=== PATIENT | male | born 1950 | race Caucasian/White ===

== ENCOUNTER → 2016-03-31 | Outpatient (CLI) | payer MEDICARE, OTHER ==
[~2016-03-31] MED LIST: HYDR-3133 PO; OMEP40CA2 PO; PENT500C2 PO; PROP10TA6 PO; RIFA550 PO; TAMS0.4C67 PO; TAMS5CAP PO; XIFA550T4 PO
== END ==
LOC: CLAB 10:07
PROVIDERS: ATTEND Specialist
DX: B18.2 Chronic viral hepatitis C (principal)
CPT/HCPCS: 36415; 82140

== ENCOUNTER 2016-05-13 13:30 | Inpatient (IN) | payer MEDICARE ==
[~2016-05-13] VITALS: Ht 185.4 cm; Wt 91.7 kg
[~2016-05-13 13:30] MED LIST changes: -OMEP40CA2 PO; -TAMS5CAP PO; -XIFA550T4 PO
[2016-05-13 13:34] VITALS: BP 130/95; PULSE 81; RESP 16; TEMP 97.6; O2SAT 99
[2016-05-13] MEDS ORDERED: SODIUM CHLOR 0.9% 1000 ML INJ 1,000 ML IV SCH (13:44)
[2016-05-13] MEDS ORDERED: SODIUM CHLORIDE 0.9% FLUSH 10 ML FLUSH IV FLUSH PRN ×2 (13:45→16:15)
[2016-05-13] MEDS ORDERED: HYDROmorphone HCL PF 1 MG/ML VIAL IVS ONE (13:45)
[2016-05-13] MEDS ORDERED: ONDANSETRON HCL 4 MG/2 ML VIAL IVP ONE (13:45)
--- NOTE | 2016-05-13 13:47 | PD ---
HPI Chief Complaint: GI Complaint Time Seen by Provider: 13:44 Travel History International Travel<30 days: No Contact w/Intl Traveler<30days: No Traveled to known affect area: No History of Present Illness HPI This is a 65-year-old male who has a history Crohn's disease and liver cancer with an ileostomy who presents to the emergency department with 4 days of copious watery diarrhea, having loose stools every 20 minutes, severe, constant , associated with generalized weakness and diffuse body cramps. He also reports abdominal cramping around his umbilicus. He thinks he may gotten food poisoning from [place] food that he ate late Thursday evening. Patient denies any fevers or chills. He feels nauseous but hasn't vomited. He denies any recent antibiotic use. PFSH Past Medical History Hx Anticoagulant Therapy: No Autoimmune Disease: No Blood Disorders: Yes (anemia) Anxiety: No Depression: Yes Cancer: Yes (Liver) Cardiovascular Problems: No Cirrhosis: Yes (ESLD) Diabetes: No Diminished Hearing: No Diverticulitis: Yes (1.5FT REMOVED , BOWEL RESECTION) Endocrine: No Gastrointestinal Disorders: Yes (CROHNS) GERD: Yes Genitourinary: Yes (overactive bladder.) Headaches: Yes Hepatitis: Yes (HEPATITIS C-STAGE IV LIVER DISEASE) Hiatal Hernia: No Hypertension: No Immune Disorder: No Implanted Vascular Access Dvce: Yes Kidney Stones: No Musculoskeletal: No Neurologic: Yes (neurapathy ) Psychiatric: No Reproductive: No Respiratory: No Immunizations Current: Yes Renal Failure: No Thyroid Disease: No Ulcer: Yes PNEUMOCCOCAL Vaccine (Year): 2 Past Surgical History Abdominal Surgery: Yes (COLON RESECTION, HERNIA, ILEOSTOMY) AICD: No Cardiac Surgery: No Ear Surgery: No Endocrine Surgery: No Eye Surgery: No Genitourinary Surgery: No Gynecologic Surgery: No Joint Replacement: No Neurologic Surgery: No Oral Surgery: No Thoracic Surgery: No Other Surgery: Yes (JOSÉ LUIS HERNIA REPAIR, liver embolization ) Social History Alcohol Use: No Tobacco Use: No Substance Use: No Allergies-Medications (Allergen,Severity, Reaction): Coded Allergies: Prednisone (Verified Adverse Reaction, Intermediate, "PARANOID", 05/13/16) per patient denies allergy *MDRO Multi-Drug Resistant Organism (Verified Adverse Reaction, Unknown, ) VRE (epigastric fluid) - 10/2007 VRE (blood) - 08/2007 Reported Meds & Prescriptions Reported Meds & Active Scripts Active Reported Omeprazole 40 Mg Cap 40 Mg PO DAILY Flomax (Tamsulosin HCl) 0.4 Mg Cap 0.4 Mg PO BID Xifaxan (Rifaximin) 550 Mg Tab 550 Mg PO Q12HR Propranolol (Propranolol HCl) 10 Mg Tab 10 Mg PO Q12HR Pentasa (Mesalamine) 500 Mg Caper 1,000 Mg PO QID Hydroxyzine HCl 25 Mg Tab 25 Mg PO HS Review of Systems Except as stated in HPI: all other systems reviewed are Neg Physical Exam Narrative GENERAL:Well appearing, no acute distress SKIN: Dry with skin tenting HEAD: Atraumatic. Normocephalic. EYES: Pupils equal and round. No injection or drainage. ENT: Dry mucous membranes NECK: Trachea midline. CARDIOVASCULAR: Regular rate and rhythm. No murmur appreciated. RESPIRATORY: Clear to auscultation. Breath sounds equal bilaterally. GASTROINTESTINAL: Abdomen soft, diffusely mildly tender with no rebound or guarding. Ileostomy is patent and productive. Diffuse abdominal surgical scars. MUSCULOSKELETAL: No obvious deformities. NEUROLOGICAL: Awake and alert. No obvious cranial nerve deficits. Moving all extremities.. PSYCHIATRIC: Appropriate mood and affect; insight and judgment normal. Data Data Last Documented VS Vital Signs Date Time Temp Pulse Resp B/P Pulse Ox O2 Delivery O2 Flow Rate FiO2 05/13/16 14:33 97 05/13/16 13:50 16 05/13/16 13:34 97.6 81 130/95 Orders Complete Blood Count With Diff (05/13/16 13:44) Comprehensive Metabolic Panel (05/13/16 13:44) Urinalysis - C+S If Indicated (05/13/16 13:44) Iv Access Insert/Monitor (05/13/16 13:44) Ecg Monitoring (05/13/16 13:44) Oximetry (05/13/16 13:44) Ondansetron Inj (Zofran Inj) (05/13/16 13:45) Sodium Chlor 0.9% 1000 Ml Inj (Ns 1000 M (05/13/16 13:44) Sodium Chloride 0.9% Flush (Ns Flush) (05/13/16 13:45) Hydromorphone Pf Inj (Dilaudid Pf Inj) (05/13/16 13:45) Diatrizoate Liq ( Gastroulysses Liq) (05/13/16 14:17) Sodium Chlor 0.9% 1000 Ml Inj (Ns 1000 M (05/13/16 14:30) Ct Abd/Pel W/O Iv Contrast (05/13/16 ) C Diff Toxin Pcr (05/13/16 14:39) Admit Order (Ed Use Only) (05/13/16 14:48) Labs Laboratory Tests Test 05/13/16 13:50 White Blood Count 5.7 TH/MM3 Red Blood Count 5.46 MIL/MM3 Hemoglobin 17.1 GM/DL Hematocrit 49.8 % Mean Corpuscular Volume 91.2 FL Mean Corpuscular Hemoglobin 31.4 PG Mean Corpuscular Hemoglobin 34.4 % Concent Red Cell Distribution Width 13.6 % Platelet Count 102 TH/MM3 Mean Platelet Volume 7.7 FL Neutrophils (%) (Auto) 71.8 % Lymphocytes (%) (Auto) 8.5 % Monocytes (%) (Auto) 16.4 % Eosinophils (%) (Auto) 2.6 % Basophils (%) (Auto) 0.7 % Neutrophils # (Auto) 4.2 TH/MM3 Lymphocytes # (Auto) 0.5 TH/MM3 Monocytes # (Auto) 0.9 TH/MM3 Eosinophils # (Auto) 0.1 TH/MM3 Basophils # (Auto) 0.0 TH/MM3 CBC Comment AUTO DIFF Differential Comment AUTO DIFF CONFIRMED Sodium Level 128 MEQ/L Potassium Level 3.9 MEQ/L Chloride Level 95 MEQ/L Carbon Dioxide Level 23.5 MEQ/L Anion Gap 10 MEQ/L Blood Urea Nitrogen 32 MG/DL Creatinine 2.20 MG/DL Estimat Glomerular Filtration 30 ML/MIN Rate Random Glucose 126 MG/DL Calcium Level 8.9 MG/DL Total Bilirubin 1.5 MG/DL Aspartate Amino Transf 37 U/L (AST/SGOT) Alanine Aminotransferase 32 U/L (ALT/SGPT) Alkaline Phosphatase 119 U/L Total Protein 9.6 GM/DL Albumin 4.0 GM/DL MDM Medical Decision Making Medical Screen Exam Complete: Yes Emergency Medical Condition: Yes Interpretation(s) Afebrile, no tachycardia, mild hypertension No leukocytosis Hemoconcentration Hyponatremia Creatinine is 2.2 which is newly elevated from prior labs Total bilirubin is 1.5 and alkaline phosphatase is elevated Gamma gap is present Differential Diagnosis Viral gastroenteritis, infectious diarrhea, C. difficile, bowel obstruction, dehydration, electrolyte abnormality Narrative Course This is a 65-year-old patient who has a history of Crohn's disease with an ileostomy who presents to the emergency department with copious diarrhea that started 4 days ago. He was placed on a monitor and an IV was established. Labs were obtained which demonstrate hyponatremia and acute kidney injury consistent with dehydration. He was given 2 L of IV hydration. Stool studies were obtained. CT abdomen and pelvis was unrevealing. Patient will be admitted for further hydration. Physician Communication Physician Communication Discussed with Dr. King Diagnosis Primary Impression: Acute kidney injury Admitting Information Admitting Physician Requests: Admit Martha Tracy MD May 13, 2016 13:47
[2016-05-13 14:01] LABS: AUTOMATED NEUTROPHIL # 4.2 TH/MM3 (1.8-7.7); BASOPHIL % 0.7 % (0.0-2.0); EOSINOPHIL # 0.1 TH/MM3 (0-0.4); EOSINOPHIL % 2.6 % (0.0-4.0); HEMATOCRIT 49.8 % (39.0-51.0); LYMPH % 8.5 % (9.0-44.0); LYMPHOCYTE # 0.5 TH/MM3 (1.0-4.8); MEAN CELL VOLUME 91.2 FL (80.0-100.0); MEAN CORPUSCULAR HEMOGLOBIN 31.4 PG (27.0-34.0); MEAN CORPUSCULAR HGB CONC 34.4 % (32.0-36.0); MONO % 16.4 % (0.0-8.0); NEUT % 71.8 % (16.0-70.0); PLATELET COUNT 102 TH/MM3 (150-450); RED BLOOD COUNT 5.46 MIL/MM3 (4.50-5.90); RED CELL DISTRIBUTION WIDTH 13.6 % (11.6-17.2); WHITE BLOOD COUNT 5.7 TH/MM3 (4.0-11.0)
[2016-05-13] MEDS ORDERED: XIFA550T4 PO (14:02)
[2016-05-13] MEDS ORDERED: TAMS5CAP PO (14:02)
[2016-05-13] MEDS ORDERED: HYDR-3133 PO (14:02)
[2016-05-13] MEDS ORDERED: OMEP40CA2 PO (14:02)
[2016-05-13] MEDS ORDERED: PENT500C2 PO (14:02)
[2016-05-13] MEDS ORDERED: PROP10TA6 PO (14:02)
[2016-05-13 14:09] LABS: CHLORIDE 95 MEQ/L (98-107); POTASSIUM 3.9 MEQ/L (3.5-5.1); SODIUM (NA) 128 MEQ/L (136-145)
[2016-05-13 14:10] LABS: HEMO FLAGS AUTO DIFF
[2016-05-13 14:13] LABS: ANION GAP 10 MEQ/L (5-15); BICARBONATE 23.5 MEQ/L (21.0-32.0); BLOOD UREA NITROGEN 32 MG/DL (7-18)
[2016-05-13 14:16] LABS: ALT (GPT) 32 U/L (12-78); AST (GOT) 37 U/L (15-37); GLOMERULAR FILTRATION RATE 30 ML/MIN (>89)
[2016-05-13 14:17] LABS: TOTAL BILIRUBIN ADULT 1.5 MG/DL (0.2-1.0)
[2016-05-13] MEDS ORDERED: DIATRIZOATE MEGLUM/DIATRIZOATE SOD 9 ML CUP ONE (14:17)
[2016-05-13 14:19] LABS: ALKALINE PHOSPHATASE 119 U/L (45-117)
[2016-05-13 14:27] LABS: SCAN/DIFF AUTO DIFF CONFIRMED
[2016-05-13] MEDS ORDERED: SODIUM CHLOR 0.9% 1000 ML INJ 1,000 ML IV ONE (14:30)
[2016-05-13 14:33] VITALS: O2SAT 97
[2016-05-13 15:21] VITALS: BP 123/76; PULSE 63; RESP 16; O2SAT 98
--- NOTE | 2016-05-13 15:39 | RADHPO ---
EXAM DATE/TIME: 05/13/2016 14:41 [facility] COMPARISON: CT ABDOMEN & PELVIS W CONTRAST, April 18, 2015, 10:56. INDICATIONS : Abdominal cramping and diarrhea for three days. ORAL CONTRAST: No oral contrast ingested. RADIATION DOSE: 22.14 CTDIvol (mGy) MEDICAL HISTORY : Diverticulitis. Gastroesophageal reflux disease. Cirrhosis. SURGICAL HISTORY : Bowel resection. Ileostomy. Bilateral hernia repair. ENCOUNTER: Initial ACUITY: 3 days PAIN SCALE: 4/10 LOCATION: abdomen/pelvis TECHNIQUE: Volumetric scanning of the abdomen and pelvis was performed. Using automated exposure control and ad justment of the mA and/or kV according to patient size, radiation dose was kept as low as reasonably achievable to obtain optimal diagnostic quality images. FINDINGS: LOWER LUNGS: The visualized lower lungs are clear. LIVER: Oval 1.4 cm hypodensity in the left lobe of the liver is taller than on the comparison study of 2015 (2.6 cm). Metallic clips or coils in the right lobe of the liver. Distended gallbladder with multiple gallstones. Mild stranding opacity in the right upper quadrant inferior to the gallbladder is uncha nged. SPLEEN: Enlarged and unchanged. PANCREAS: Within normal limits. KIDNEYS: No change. No hydronephrosis. ADRENAL GLANDS: Within normal limits. VASCULAR: There is no aortic aneurysm. BOWEL/MESENTERY: Left lower quadrant spigelian anterior abdominal wall hernia containing bowel unchanged. Right sided stoma with parastomal hernia containing small bowel unchanged. No evidence of bowel dilatation. No fr ee air or free fluid. RETROPERITONEUM: There is no lymphadenopathy. BLADDER: No wall thickening or mass. REPRODUCTIVE: Enlarged prostate with calcifications unchanged. INGUINAL: There is no lymphadenopathy or hernia. MUSCULOSKELETAL: Within normal limits for patient age. CONCLUSION: 1. Cholelithiasis. Questionable mild inflammatory changes adjacent to distended gallbladder. The find ings are very similar to those of April 2015. 2. Splenomegaly unchanged. 3. Surgical clips or coils in the right lobe of the liver. This finding is new compared to prior stud y. 4. Parastomal hernia again seen on the right containing loops of small bowel. 5. 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 Ortega Bueno MD on May 13, 2016 at 15:24 Board Certified Radiologist. This report was verified electronically.
[2016-05-13 16:00] VITALS: BP 120/73; PULSE 65; RESP 18; TEMP 97.6; O2SAT 97
[2016-05-13] MEDS ORDERED: NALOXONE HCL 0.4 MG/ML AMP IV PRN (16:15)
[2016-05-13] MEDS ORDERED: HYDROmorphone HCL PF 1 MG/ML VIAL IV PRN (16:15)
[2016-05-13] MEDS ORDERED: ONDANSETRON HCL 4 MG/2 ML VIAL IVP PRN (16:15)
--- NOTE | 2016-05-13 16:17 | HHI.HP ---
HPI Service [facility] Hospitalists Primary Care Physician Inocente Ferguson MD Admission Diagnosis acute kidney injury, diarrhea Chief Complaint: several days nausea diarrhea Travel History International Travel<30 Days: No Contact w/Intl Traveler <30 Da: No Traveled to Known Affected Are: No History of Present Illness This is a 65-year-old male who has a history Crohn's disease and liver cancer with an ileostomy who presents to the emergency department with 4 days of copious watery diarrhea, having loose stools every 20 minutes, severe, constant , associated with generalized weakness and diffuse body cramps. He also reports abdominal cramping around his umbilicus. He thinks he may gotten food poisoning from [place] food that he ate late Thursday evening. Patient denies any fevers or chills. He feels nauseous but hasn't vomited. He denies any recent antibiotic use. In er had lab work showed increase in cr 2 range from old levels also CT showed inflammation near gallbladder and have sent stool studies. Review of Systems Gastrointestinal: COMPLAINS OF: Abdominal pain, Diarrhea, Nausea Past Family Social History Past Medical History anemia,depression,hep c stage 4 liver on transplant list neuropathy Past Surgical History 1.5 ft bowel resection 2005,2006 ileostomy hernia repair Reported Medications xifaxan 550 bid,pentasa 500 qid,flonex .4 bid,atarax 25 hs,proprolol 10 q 12 prilosec 20 Allergies: Coded Allergies: Prednisone (Verified Adverse Reaction, Intermediate, "PARANOID", 05/13/16) per patient denies allergy *MDRO Multi-Drug Resistant Organism (Verified Adverse Reaction, Unknown, ) VRE (epigastric fluid) - 10/2007 VRE (blood) - 08/2007 Social History NS,ND Physical Exam Vital Signs Vital Signs Date Time Temp Pulse Resp B/P Pulse Ox O2 Delivery O2 Flow Rate FiO2 05/13/16 15:21 63 16 123/76 98 Room Air 05/13/16 14:33 97 05/13/16 13:50 16 05/13/16 13:34 97.6 81 16 130/95 99 Physical Exam GENERAL: This is a well-nourished, well-developed patient, in no apparent distress. SKIN: No rashes, ecchymoses or lesions. Cool and dry. HEAD: Atraumatic. Normocephalic. No temporal or scalp tenderness. EYES: Pupils equal round and reactive. Extraocular motions intact. No scleral icterus. No injection or drainage. ENT: Nose without bleeding, purulent drainage or septal hematoma. Throat without erythema, tonsillar hypertrophy or exudate. Uvula midline. Airway patent. NECK: Trachea midline. No JVD or lymphadenopathy. Supple, nontender, no meningeal signs. CARDIOVASCULAR: Regular rate and rhythm without murmurs, gallops, or rubs. RESPIRATORY: Clear to auscultation. Breath sounds equal bilaterally. No wheezes , rales, or rhonchi. GASTROINTESTINAL: Abdomen soft, mild-tender, nondistended. No hepato- splenomegaly, or palpable masses. No guarding.ileostomy bag MUSCULOSKELETAL: Extremities without clubbing, cyanosis, or edema. No joint tenderness, effusion, or edema noted. No calf tenderness. Negative Homans sign bilaterally. NEUROLOGICAL: Awake and alert. Cranial nerves II through XII intact. Motor and sensory grossly within normal limits. Five out of 5 muscle strength in all muscle groups. Normal speech. Laboratory Laboratory Tests Test 05/13/16 13:50 White Blood Count 5.7 Red Blood Count 5.46 Hemoglobin 17.1 Hematocrit 49.8 Mean Corpuscular Volume 91.2 Mean Corpuscular Hemoglobin 31.4 Mean Corpuscular Hemoglobin 34.4 Concent Red Cell Distribution Width 13.6 Platelet Count 102 Mean Platelet Volume 7.7 Neutrophils (%) (Auto) 71.8 Lymphocytes (%) (Auto) 8.5 Monocytes (%) (Auto) 16.4 Eosinophils (%) (Auto) 2.6 Basophils (%) (Auto) 0.7 Neutrophils # (Auto) 4.2 Lymphocytes # (Auto) 0.5 Monocytes # (Auto) 0.9 Eosinophils # (Auto) 0.1 Basophils # (Auto) 0.0 CBC Comment AUTO DIFF Differential Comment AUTO DIFF CONFIRMED Sodium Level 128 Potassium Level 3.9 Chloride Level 95 Carbon Dioxide Level 23.5 Anion Gap 10 Blood Urea Nitrogen 32 Creatinine 2.20 Estimat Glomerular Filtration 30 Rate Random Glucose 126 Calcium Level 8.9 Total Bilirubin 1.5 Aspartate Amino Transf 37 (AST/SGOT) Alanine Aminotransferase 32 (ALT/SGPT) Alkaline Phosphatase 119 Total Protein 9.6 Albumin 4.0 Result Diagram: 05/13/16 1350 05/13/16 1350 Imaging Last 24 hours Impressions Abdomen/Pelvis CT 05/13/16 0000 Signed Impressions: Service Date/Time: Friday, May 13, 2016 14:41 - CONCLUSION: 1. Cholelithiasis. Questionable mild inflammatory changes adjacent to distended gallbladder. The findings are very similar to those of April 2015. 2. Splenomegaly unchanged. 3. Surgical clips or coils in the right lobe of the liver. This finding is new compared to prior study. 4. Parastomal hernia again seen on the right containing loops of small bowel. 5. 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 Ortega Bueno MD Assessment and Plan Problem List: (1) Abdominal pain Status: Acute Plan: about 3-4 days duration with some inflammation near GB plus possible exposure to children with gastroenteritis vs food irritation will get ultrasound GB and consult GI (2) Diarrhea Status: Acute Plan: as above stool for c diff and use immodium prn (3) Acute kidney injury Status: Acute Plan: probable dehydration will hydrate and recheck labs Assessment and Plan further plan as case develops Code Status full Discussed Condition With patient Physician Certification 2 Midnight Certification Type: Admission for Inpatient Services Order for Inpatient Services The services are ordered in accordance with Medicare regulations or non- Medicare payer requirements, as applicable. In the case of services not specified as inpatient-only, they are appropriately provided as inpatient services in accordance with the 2-midnight benchmark. Estimated LOS (days): 3 3 days is the estimated time the patient will need to remain in the hospital, assuming treatment plan goals are met and no additional complications. Post-Hospital Plan: Not yet determined Reed Woodall MD May 13, 2016 16:17
[2016-05-13] MEDS: MESALAMINE 250 MG CAP PO SCH ×2 (16:59→21:39)
[2016-05-13] MEDS: 1/2 NS + KCL 20 MEQ INJ 1,000 ML IV SCH (16:59)
[2016-05-13] MEDS: PANTOPRAZOLE SODIUM 40 MG VIAL IV PUSH SCH (16:59)
[2016-05-13 20:00] VITALS: BP 126/77; PULSE 58; RESP 18; TEMP 97.8; O2SAT 97
--- NOTE | 2016-05-13 20:31 | MB ---
cc: MYRIAM BUTLER MD DATE OF CONSULTATION: 05/13/[address] Woodall REASON FOR REFERRAL Diarrhea, abdominal discomfort. Thank you for the consultation. HISTORY OF PRESENT ILLNESS: The patient is a 65-year-old pleasant gentleman who has history of Crohn disease status post colectomy with ileostomy bag. The patient was also known to have liver cancer. He stated that he was doing well until Thursday when he thinks he ate at a [place] restaurant. He felt that the food was spoiled and since then he started having enormous amount of diarrhea. He was filling his colostomy bag every 20 minutes with cramping. He became weak and felt that he is dehydrated. Because of that, he came to the hospital. He denies any nausea and vomiting now. He had fever up to 101.2. He has a CT scan which showed some inflammation and has gallbladder. PAST MEDICAL HISTORY: Significant for: 1. Hepatitis C. 2. Stage IV, liver transplant list. 3. Depression. 4. Anemia. 5. Crohn's disease with colectomy. MEDICATIONS: Reviewed in the chart. ALLERGIES: PREDNISONE REVIEW OF SYSTEMS: All 12 point negative except for HPI. PHYSICAL EXAMINATION: Alert, oriented, no acute distress. Vital signs stable. HEENT: Pupils equal, round and reactive to light. Neck: Supple. Chest: Clear. Cardiac: Regular rate and rhythm. Abdomen: Soft, non-tender, non-distended at this time. Ileostomy bag in good position. Extremities: No edema, clubbing or cyanosis. Neurologic: Intact. Psychologic: Appropriate. LABORATORY DATA White count 5.7, hemoglobin 17.1, platelets 102, AST 37, ALT 32, total bilirubin 1.5, BUN 32, creatinine 2.0. CT scan showed cholelithiasis, questionable mild inflammation, adjacent to the distended gallbladder, very similar to imaging last year. Surgical clip in the right liver which is new. Stomal hernia. ASSESSMENT AND PLAN: The patient is a 65 year-old gentleman who has a history of Crohn's disease, status post colectomy. The patient most likely has infection with possible food poisoning, gastroenteritis. I doubt that this is a flare-up from his Crohn's disease. I discussed with him the plan to obtain stool studies. We will see how he does. We will keep him hydrated and we will follow up with you. If the stool is negative and he does not improve, we will need to do scope to make sure he does not have Crohn's flare-up. We will continue the medication for Crohn's disease. He is on Pentasa at this time. MD SHANNAN Veliz/DINA /7:18 PM /8:22 PM
[2016-05-13] MEDS: TAMSULOSIN HCL 0.4 MG CAP PO SCH (21:38)
[2016-05-13] MEDS: RIFAXIMIN 550 MG TAB PO SCH (21:38)
[2016-05-13] MEDS: SODIUM CHLORIDE 0.9% FLUSH 10 ML FLUSH IV FLUSH SCH (21:39)
[2016-05-13] MEDS: hydrOXYzine HCL 25 MG TAB PO SCH (21:39)
[2016-05-13] MEDS: PROPRANOLOL HCL 10 MG TAB PO SCH (21:40)
[2016-05-14] VITALS: BP 131/79; PULSE 55; RESP 16; TEMP 97.5; O2SAT 99
[2016-05-14 00:34] LABS: BLOOD, URINE SMALL (NEG); GLUCOSE,URINE NEG (NEG); KETONE, URINE NEG (NEG); NITRITE,URINE NEG (NEG); PH, URINE 5.5 (5.0-8.5)
[2016-05-14 00:46] LABS: URINE COLOR YELLOW (YELLW/STRAW)
[2016-05-14 00:47] LABS: MUCUS URINE OCC /lpf (OCC); SQUAMOUS EPITHELIAL CELL URINE 0-5 /hpf (0-5)
[2016-05-14 00:48] LABS: COMMENT (UR) CULT NOT INDICATED; CULTURE IF INDICATED CULT NOT INDICATED; WBC, URINE 0-2 /hpf (0-5)
[2016-05-14] MEDS: 1/2 NS + KCL 20 MEQ INJ 1,000 ML IV SCH ×2 (04:53→16:20)
[2016-05-14 06:57] LABS: AUTOMATED NEUTROPHIL # 2.6 TH/MM3 (1.8-7.7); BASOPHIL % 0.4 % (0.0-2.0); EOSINOPHIL # 0.1 TH/MM3 (0-0.4); EOSINOPHIL % 3.5 % (0.0-4.0); HEMATOCRIT 46.3 % (39.0-51.0); LYMPH % 13.4 % (9.0-44.0); LYMPHOCYTE # 0.6 TH/MM3 (1.0-4.8); MEAN CELL VOLUME 91.6 FL (80.0-100.0); MEAN CORPUSCULAR HEMOGLOBIN 31.3 PG (27.0-34.0); MEAN CORPUSCULAR HGB CONC 34.1 % (32.0-36.0); MONO % 19.8 % (0.0-8.0); NEUT % 62.9 % (16.0-70.0); PLATELET COUNT 68 TH/MM3 (150-450); RED BLOOD COUNT 5.05 MIL/MM3 (4.50-5.90); RED CELL DISTRIBUTION WIDTH 13.4 % (11.6-17.2); WHITE BLOOD COUNT 4.1 TH/MM3 (4.0-11.0)
[2016-05-14 07:11] LABS: HEMO FLAGS AUTO DIFF
[2016-05-14 07:40] LABS: ALKALINE PHOSPHATASE 101 U/L (45-117); ALT (GPT) 30 U/L (12-78); ANION GAP 10 MEQ/L (5-15); AST (GOT) 42 U/L (15-37); BICARBONATE 22.4 MEQ/L (21.0-32.0); BLOOD UREA NITROGEN 32 MG/DL (7-18); CHLORIDE 103 MEQ/L (98-107); GLOMERULAR FILTRATION RATE 47 ML/MIN (>89); POTASSIUM 4.4 MEQ/L (3.5-5.1); SODIUM (NA) 135 MEQ/L (136-145); TOTAL BILIRUBIN ADULT 1.1 MG/DL (0.2-1.0)
[2016-05-14 08:00] VITALS: BP 110/70; PULSE 67; RESP 20; TEMP 96.5; O2SAT 97
[2016-05-14 08:12] LABS: PLATELET ESTIMATE SMEAR LOW (NORMAL); PLATELET MORPHOLOGY NORMAL (NORMAL); SCAN/DIFF AUTO DIFF CONFIRMED
[2016-05-14] MEDS: SODIUM CHLORIDE 0.9% FLUSH 10 ML FLUSH IV FLUSH SCH ×2 (08:53→21:00)
[2016-05-14] MEDS: PROPRANOLOL HCL 10 MG TAB PO SCH ×2 (09:00→21:20)
[2016-05-14] MEDS: MESALAMINE 250 MG CAP PO SCH ×4 (09:06→21:20)
[2016-05-14] MEDS: TAMSULOSIN HCL 0.4 MG CAP PO SCH ×2 (09:06→21:20)
[2016-05-14] MEDS: RIFAXIMIN 550 MG TAB PO SCH ×2 (09:06→21:20)
--- NOTE | 2016-05-14 09:48 | RADHPO ---
EXAM DATE/TIME: 05/14/2016 08:30 [facility] COMPARISON: No previous studies available for comparison. EXTERNAL COMPARISON : [facility], US ABDOMEN - COMPLETE, February 03, 2012 INDICATIONS : Gallstones. MEDICAL HISTORY : Crohn's disease. Diverticulitis. Cirrhosis. Neuropathy. Ulcer. Abdominal pain. GERD. Overactive bladd er. Hep C. Depression. Anemia. SURGICAL HISTORY : Pacemaker. Ileostomy. Colon resection. Hernia repair. Right rotator cuff repair. Liver embolizati on. Blood transfusions. ENCOUNTER: Initial ACUITY: 3 days PAIN SCORE: 4/10 LOCATION: Right upper quadrant MEASUREMENTS: LIVER: 14.5 cm length COMMON DUCT: 5 mm RIGHT KIDNEY: 11.8 x 6.2 x 7.8 cm FINDINGS: LIVER: Normal echotexture without focal lesion or ductal dilatation. COMMON DUCT: No intraluminal mass or stone visualized. GALLBLADDER: There is minimal fluid around the gallbladder. Liver multiple small gallstones evident. Gallbladder wall measures 3 mm. The patient is not tender over the gallbladder. PANCREAS: The visualized portions are within normal limits. RIGHT KIDNEY: No evidence of hydronephrosis, stone, or mass. CONCLUSION: Multiple small gallstones with minimal pericholecystic fluid and mild gallbladder wall thickening. T he patient is not tender over the gallbladder. Ryan Bedolla MD FACR on May 14, 2016 at 9:45 Board Certified Radiologist. This report was verified electronically.
--- NOTE | 2016-05-14 10:12 | HHI.PR ---
Subjective Remarks Patient admitted with abdominal pain diarrhea and i requested GI to see as has hx crohn's colitis ,patient may have eaten bad food which exacerbated problem . He is feeling better this am still pending c diff toxin. On ct had some inflammation near gallbladder . Objective Vitals GENERAL: SKIN: Warm and dry. HEAD: Atraumatic. Normocephalic. EYES: Pupils equal and round. No scleral icterus. No injection or drainage. ENT: No nasal bleeding or discharge. Mucous membranes pink and moist. NECK: Trachea midline. No JVD. CARDIOVASCULAR: Regular rate and rhythm. RESPIRATORY: No accessory muscle use. Clear to auscultation. Breath sounds equal bilaterally. GASTROINTESTINAL: Abdomen soft, non-tender, nondistended. Hepatic and splenic margins not palpable. MUSCULOSKELETAL: Extremities without clubbing, cyanosis, or edema. No obvious deformities. NEUROLOGICAL: Awake and alert. No obvious cranial nerve deficits. Motor grossly within normal limits. Five out of 5 muscle strength in the arms and legs. Normal speech. PSYCHIATRIC: Appropriate mood and affect; insight and judgment normal. Vital Signs Date Time Temp Pulse Resp B/P Pulse Ox O2 Delivery O2 Flow Rate FiO2 05/14/16 08:00 96.5 67 20 110/70 97 05/14/16 00:00 97.5 55 16 131/79 99 05/13/16 20:00 97.8 58 18 126/77 97 05/13/16 16:00 97.6 65 18 120/73 97 05/13/16 15:21 63 16 123/76 98 Room Air 05/13/16 14:33 97 05/13/16 13:50 16 05/13/16 13:34 97.6 81 16 130/95 99 05/13/16 05/13/16 05/14/16 15:00 23:00 07:00 Intake Total 1760 ml Balance 1760 ml Intake Oral 760 ml IV Total 1000 ml # Voids 2 # Bowel Movements 0 Result Diagram: 05/14/16 0520 05/14/16 0520 Imaging Last 24 hours Impressions Abdomen/Pelvis CT 05/13/16 0000 Signed Impressions: Service Date/Time: Friday, May 13, 2016 14:41 - CONCLUSION: 1. Cholelithiasis. Questionable mild inflammatory changes adjacent to distended gallbladder. The findings are very similar to those of April 2015. 2. Splenomegaly unchanged. 3. Surgical clips or coils in the right lobe of the liver. This finding is new compared to prior study. 4. Parastomal hernia again seen on the right containing loops of small bowel. 5. 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 Ortega Bueno MD A/P Problem List: (1) Abdominal pain Status: Acute Plan: about 3-4 days duration with some inflammation near GB plus possible exposure to children with gastroenteritis vs food irritation abdominal ultrasound several small gallstones mild inflammation not tender in that area labs improved (2) Diarrhea Status: Acute Plan: as above stool for c diff pending did not use immodium (3) Acute kidney injury Status: Acute Plan: probable dehydration hydrated and cr at 1.5 Assessment and Plan will advance diet to soft regular as tolertaed follow labs possibly home tomorrow Reed Woodall MD May 14, 2016 10:12
[2016-05-14 10:14] LABS: C. DIFF EPI 027 PRESUMPTIVE NEGATIVE (NEGATIVE); C. DIFF TOXIN PCR NEGATIVE (NEGATIVE)
[2016-05-14 12:00] VITALS: BP 105/70; PULSE 66; RESP 20; TEMP 96.6; O2SAT 97
[2016-05-14 16:00] VITALS: BP 101/76; PULSE 68; RESP 20; TEMP 96.7; O2SAT 97
[2016-05-14] MEDS: PANTOPRAZOLE SODIUM 40 MG VIAL IV PUSH SCH (18:02)
--- NOTE | 2016-05-14 19:53 | HHI.GIFU ---
Subjective Remarks feels ok, still having diarrhea but less than before Objective Vitals I&O Vital Signs Date Time Temp Pulse Resp B/P Pulse Ox O2 Delivery O2 Flow Rate FiO2 05/14/16 16:00 96.7 68 20 101/76 97 05/14/16 12:00 96.6 66 20 105/70 97 05/14/16 08:00 96.5 67 20 110/70 97 05/14/16 00:00 97.5 55 16 131/79 99 05/13/16 20:00 97.8 58 18 126/77 97 I/O 05/13/16 05/13/16 05/13/16 05/14/16 05/14/16 05/14/16 07:00 15:00 23:00 07:00 15:00 23:00 Intake Total 1760 ml 980 ml Balance 1760 ml 980 ml Intake Oral 760 ml 980 ml IV Total 1000 ml # Voids 2 8 # Bowel Movements 0 8 Laboratory Laboratory Tests Test 05/13/16 05/13/16 05/14/16 05/14/16 20:00 21:45 05:20 14:40 Stool C. difficile Toxin (PCR) NEGATIVE Stl C. difficile Toxin PRESUMPTIVE Epiderm 027 NEGATIVE Urine Color YELLOW Urine Turbidity CLEAR Urine pH 5.5 Urine Specific [place] 1.008 Urine Protein NEG Urine Glucose (UA) NEG Urine Ketones NEG Urine Occult Blood SMALL Urine Nitrite NEG Urine Bilirubin NEG Urine Leukocyte Esterase NEG Urine WBC 0-2 Urine Squamous Epithelial 0-5 Cells Urine Hyaline Casts 6-9 Urine Fine Granular Casts 0-2 Urine Mucus OCC Microscopic Urinalysis Comment CULT NOT INDICATED White Blood Count 4.1 Red Blood Count 5.05 Hemoglobin 15.8 Hematocrit 46.3 Mean Corpuscular Volume 91.6 Mean Corpuscular Hemoglobin 31.3 Mean Corpuscular Hemoglobin 34.1 Concent Red Cell Distribution Width 13.4 Platelet Count 68 Mean Platelet Volume 8.1 Neutrophils (%) (Auto) 62.9 Lymphocytes (%) (Auto) 13.4 Monocytes (%) (Auto) 19.8 Eosinophils (%) (Auto) 3.5 Basophils (%) (Auto) 0.4 Neutrophils # (Auto) 2.6 Lymphocytes # (Auto) 0.6 Monocytes # (Auto) 0.8 Eosinophils # (Auto) 0.1 Basophils # (Auto) 0.0 CBC Comment AUTO DIFF Differential Comment AUTO DIFF CONFIRMED Platelet Estimate LOW Platelet Morphology Comment NORMAL Sodium Level 135 Potassium Level 4.4 Chloride Level 103 Carbon Dioxide Level 22.4 Anion Gap 10 Blood Urea Nitrogen 32 Creatinine 1.50 Estimat Glomerular Filtration 47 Rate Random Glucose 88 Calcium Level 8.9 Total Bilirubin 1.1 Aspartate Amino Transf 42 (AST/SGOT) Alanine Aminotransferase 30 (ALT/SGPT) Alkaline Phosphatase 101 Total Protein 8.2 Albumin 3.5 VRE Surveillance Screen NEGATIVE Physical Exam HEENT: Pupils round and reactive to light; normocephalic; atraumatic; no jaundice. Throat is clear. NECK: Neck is supple, no JVD, no lymphadenopathy. CHEST: Chest is clear to auscultation and percussion. CARDIAC: Regular rate and rhythm with no murmur gallop or rubs. ABDOMEN: Soft, nondistended, nontender; no hepatosplenomegaly; bowel sounds are present in all four quadrants. ileostomy bag in place EXTREMITIES: No clubbing, cyanosis, or edema. SKIN: Normal; no rash; no jaundice. SUPERVISOR PATCHING: No focal deficits; alert and oriented times three. Assessment and Plan Plan sever diarrhea, c diff negative, other cultures negative, could be viral gastroenteritis, crohn's less likely with this presentation, we will continue hydration, we will start feeding him Us showed GS but no pain, we will monitor Kg Loza MD May 14, 2016 19:53
[2016-05-14 20:00] VITALS: BP 114/74; PULSE 73; RESP 20; TEMP 97.9; O2SAT 98
[2016-05-14] MEDS: hydrOXYzine HCL 25 MG TAB PO SCH (21:20)
[2016-05-15] VITALS: BP 110/72; PULSE 64; RESP 20; TEMP 97.7; O2SAT 98
[2016-05-15] MEDS: 1/2 NS + KCL 20 MEQ INJ 1,000 ML IV SCH (06:12)
[2016-05-15 08:00] VITALS: BP 118/73; PULSE 55; RESP 18; TEMP 96.8; O2SAT 96
[2016-05-15 08:26] LABS: AUTOMATED NEUTROPHIL # 2.9 TH/MM3 (1.8-7.7); BASOPHIL % 0.4 % (0.0-2.0); EOSINOPHIL # 0.1 TH/MM3 (0-0.4); EOSINOPHIL % 3.2 % (0.0-4.0); HEMATOCRIT 45.6 % (39.0-51.0); LYMPH % 13.2 % (9.0-44.0); LYMPHOCYTE # 0.6 TH/MM3 (1.0-4.8); MEAN CELL VOLUME 91.6 FL (80.0-100.0); MEAN CORPUSCULAR HEMOGLOBIN 30.9 PG (27.0-34.0); MEAN CORPUSCULAR HGB CONC 33.7 % (32.0-36.0); MONO % 18.3 % (0.0-8.0); NEUT % 64.9 % (16.0-70.0); PLATELET COUNT 78 TH/MM3 (150-450); RED BLOOD COUNT 4.98 MIL/MM3 (4.50-5.90); WHITE BLOOD COUNT 4.4 TH/MM3 (4.0-11.0)
[2016-05-15 08:28] LABS: HEMO FLAGS AUTO DIFF
[2016-05-15 08:31] LABS: CHLORIDE 109 MEQ/L (98-107); POTASSIUM 4.4 MEQ/L (3.5-5.1); SODIUM (NA) 139 MEQ/L (136-145)
[2016-05-15 08:35] LABS: ANION GAP 8 MEQ/L (5-15); BICARBONATE 22.3 MEQ/L (21.0-32.0); BLOOD UREA NITROGEN 33 MG/DL (7-18)
[2016-05-15 08:38] LABS: ALT (GPT) 29 U/L (12-78); AST (GOT) 38 U/L (15-37); GLOMERULAR FILTRATION RATE 55 ML/MIN (>89)
[2016-05-15 08:41] LABS: ALKALINE PHOSPHATASE 116 U/L (45-117)
[2016-05-15] MEDS: SODIUM CHLORIDE 0.9% FLUSH 10 ML FLUSH IV FLUSH SCH (09:00)
[2016-05-15] MEDS: TAMSULOSIN HCL 0.4 MG CAP PO SCH (09:46)
[2016-05-15] MEDS: PROPRANOLOL HCL 10 MG TAB PO SCH (09:46)
[2016-05-15] MEDS: RIFAXIMIN 550 MG TAB PO SCH (09:46)
[2016-05-15] MEDS: MESALAMINE 250 MG CAP PO SCH (09:46)
--- NOTE | 2016-05-15 10:50 | HHI.DS ---
Discharge Summary Admission Date May 13, 2016 at 14:49 Admitting Diagnosis acute kidney injury, diarrhea (1) Abdominal pain Diagnosis: Principal (2) Diarrhea Diagnosis: Principal (3) Acute kidney injury Diagnosis: [facility] Brief History This is a 65-year-old male who has a history Crohn's disease and liver cancer with an ileostomy who presents to the emergency department with 4 days of copious watery diarrhea, having loose stools every 20 minutes, severe, constant , associated with generalized weakness and diffuse body cramps. He also reports abdominal cramping around his umbilicus. He thinks he may gotten food poisoning from [employer] food that he ate late Thursday evening. Patient denies any fevers or chills. He feels nauseous but hasn't vomited. He denies any recent antibiotic use. In er had lab work showed increase in cr 2 range from old levels also CT showed inflammation near gallbladder and have sent stool studies. CBC/BMP: 05/15/16 0810 05/15/16 0810 Significant Findings Laboratory Tests Test 05/13/16 05/13/16 05/14/16 05/15/16 13:50 21:45 05:20 08:10 Hemoglobin 17.1 GM/DL (13.0-17.0) Platelet Count 102 TH/MM3 68 TH/MM3 78 TH/MM3 (150-450) (150-450) (150-450) Neutrophils (%) (Auto) 71.8 % (16.0-70.0) Lymphocytes (%) (Auto) 8.5 % (9.0-44.0) Monocytes (%) (Auto) 16.4 % 19.8 % 18.3 % (0.0-8.0) (0.0-8.0) (0.0-8.0) Lymphocytes # (Auto) 0.5 TH/MM3 0.6 TH/MM3 0.6 TH/MM3 (1.0-4.8) (1.0-4.8) (1.0-4.8) Sodium Level 128 MEQ/L 135 MEQ/L (136-145) (136-145) Chloride Level 95 MEQ/L 109 MEQ/L (98-107) (98-107) Blood Urea Nitrogen 32 MG/DL (7-18) 32 MG/DL (7-18) 33 MG/DL (7-18) Creatinine 2.20 MG/DL 1.50 MG/DL (0.60-1.30) (0.60-1.30) Estimat Glomerular Filtration 30 ML/MIN (>89) 47 ML/MIN (>89) 55 ML/MIN (>89) Rate Random Glucose 126 MG/DL (74-106) Total Bilirubin 1.5 MG/DL 1.1 MG/DL (0.2-1.0) (0.2-1.0) Alkaline Phosphatase 119 U/L (45-117) Total Protein 9.6 GM/DL (6.4-8.2) Urine Occult Blood SMALL (NEG) Urine Hyaline Casts 6-9 /lpf (RARE) Platelet Estimate LOW (NORMAL) Aspartate Amino Transf 42 U/L (15-37) 38 U/L (15-37) (AST/SGOT) Albumin 3.3 GM/DL (3.4-5.0) PE at Discharge GENERAL: SKIN: Warm and dry. HEAD: Atraumatic. Normocephalic. EYES: Pupils equal and round. No scleral icterus. No injection or drainage. ENT: No nasal bleeding or discharge. Mucous membranes pink and moist. NECK: Trachea midline. No JVD. CARDIOVASCULAR: Regular rate and rhythm. RESPIRATORY: No accessory muscle use. Clear to auscultation. Breath sounds equal bilaterally. GASTROINTESTINAL: Abdomen soft, non-tender, nondistended. Hepatic and splenic margins not palpable. MUSCULOSKELETAL: Extremities without clubbing, cyanosis, or edema. No obvious deformities. NEUROLOGICAL: Awake and alert. No obvious cranial nerve deficits. Motor grossly within normal limits. Five out of 5 muscle strength in the arms and legs. Normal speech. PSYCHIATRIC: Appropriate mood and affect; insight and judgment normal. Hospital Course Patient admitted with abdominal pain diarrhea and CT showed some inflammation near gallbladder some gallstones ,patient did well with IV fluid and stool study for c diff was negative labs were normal at discharge with kidney function returning to normal. Most probably has a gastroenteritis possible from food. Patient discharged in stable condition. Pt Condition on Discharge: Good Discharge Disposition: Discharge Home Discharge Instructions DIET: Follow Instructions for: As Tolerated, No Restrictions Activities you can perform: Regular-No Restrictions Continued Medications: Hydroxyzine HCl (Hydroxyzine HCl) 25 Mg Tab 25 MG PO HS Ref 0 TAB Mesalamine ER (Pentasa) 500 Mg Caper 500 MG PO QID Ulcerative Colitis Ref 0 CAP Omeprazole (Omeprazole) 40 Mg Cap 40 MG PO DAILY #30 Ref 0 CAP Propranolol (Propranolol) 10 Mg Tab 10 MG PO Q12HR #60 Ref 0 TAB Rifaximin (Xifaxan) 550 Mg Tab 550 MG PO Q12HR Hepatic encephalopathy #60 Ref 0 TAB Tamsulosin (Flomax) 0.4 Mg Cap 0.4 MG PO BID Manage Prostate Problems #30 Ref 0 CAP Additional Information follow up PCP Reed Woodall MD May 15, 2016 10:50
[2016-05-15 10:54] LABS: PLATELET ESTIMATE SMEAR LOW (NORMAL); PLATELET MORPHOLOGY NORMAL (NORMAL); SCAN/DIFF AUTO DIFF CONFIRMED
--- NOTE | 2016-05-16 20:39 | HHI.GIFU ---
Subjective Remarks FU for visit done on 05/15 patient is doing better, less diarrhea more firm stool and no pain Objective Vitals I&O I/O 05/15/16 05/15/16 05/15/16 05/16/16 05/16/16 05/16/16 07:00 15:00 23:00 07:00 15:00 23:00 Intake Total 861 ml Balance 861 ml Intake Oral 120 ml IV Total 741 ml # Voids 2 # Bowel Movements 2 Physical Exam HEENT: Pupils round and reactive to light; normocephalic; atraumatic; no jaundice. Throat is clear. NECK: Neck is supple, no JVD, no lymphadenopathy. CHEST: Chest is clear to auscultation and percussion. CARDIAC: Regular rate and rhythm with no murmur gallop or rubs. ABDOMEN: Soft, nondistended, nontender; no hepatosplenomegaly; bowel sounds are present in all four quadrants. ileostomy bag in place EXTREMITIES: No clubbing, cyanosis, or edema. SKIN: Normal; no rash; no jaundice. CASEWORK SUPERVISOR: No focal deficits; alert and oriented times three. Assessment and Plan Plan much less diarrhea, c diff negative, other cultures negative, could be viral gastroenteritis, crohn's less likely with this presentation, tolerating diet Us showed GS but no pain, we will monitor ok to DC home if tolerate regular diet and FU in GI clinic Kg Loza MD May 16, 2016 20:39
== END 2016-05-15 12:45 | disposition home or self-care (01) | DRG 683 ==
LOC: PHED 13:30 → INTOOBSV 14:49 → OBSVTOIN 14:49 → PHEDA 14:49 → PH3A 15:45
PROVIDERS: ADMIT Internal Medicine; ATTEND Internal Medicine
DX: N17.9 Acute kidney failure, unspecified (principal); E87.1 Hypo-osmolality and hyponatremia; C22.9 Malignant neoplasm of liver, not specified as primary or secondary; K50.90 Crohn's disease, unspecified, without complications; A05.9 Bacterial foodborne intoxication, unspecified; E86.0 Dehydration; K80.20 Calculus of gallbladder without cholecystitis without obstruction; Z93.2 Ileostomy status; Z88.8 Allergy status to other drugs, medicaments and biological substances
CPT/HCPCS: 74176; 76705; 80053; 81001; 85025; 87493; 87500; 96361; 96374; 96375; C9113; J1170; J2405; J7030; Q9963

== ENCOUNTER 2017-01-05 10:17 | Emergency (ER) | payer MEDICARE ==
[~2017-01-05] VITALS: Ht 185.4 cm; Wt 89.0 kg
[~2017-01-05 10:17] MED LIST changes: +OMEP40CA2 PO; -RIFA550 PO; -TAMS0.4C67 PO; +TAMS5CAP PO; +XIFA550T4 PO
[2017-01-05 10:19] VITALS: BP 146/77; PULSE 58; RESP 16; TEMP 97.6; O2SAT 100
[2017-01-05] MEDS ORDERED: [UNRECOGNIZED DRUG - REMARK] (10:32)
[2017-01-05] MEDS ORDERED: KETOROLAC TROMETHAMINE 60 MG/2 ML (IM) VIAL IM ONE (11:00)
[2017-01-05] MEDS ORDERED: ORPHENADRINE INJ 60 MG/2 ML AMP IM ONE (11:00)
[2017-01-05] MEDS ORDERED: CYCL5TAB PO (11:00)
[2017-01-05] MEDS ORDERED: NAPR500T2 PO (11:00)
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
== END 2017-01-05 11:20 | disposition home or self-care (01) ==
LOC: PHEFT 10:17
DX: M54.2 Cervicalgia (principal); Z94.4 Liver transplant status
CPT/HCPCS: 96372; 99284; J1885; J2360

== ENCOUNTER 2017-01-13 15:06 | Emergency (ER) | payer OTHER, MEDICARE ==
[~2017-01-13] VITALS: Ht 188 cm; Wt 91.3 kg
[~2017-01-13 15:06] MED LIST changes: +CYCL5TAB PO; +NAPR500T2 PO; +[UNRECOGNIZED DRUG - REMARK]
[2017-01-13 15:18] VITALS: BP 137/73; PULSE 78; RESP 18; TEMP 97.8; O2SAT 97
[2017-01-13] MEDS ORDERED: TACR0.5 PO (15:31)
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
[2017-01-13] MEDS ORDERED: OMEP10SU PO (15:59)
[2017-01-13] MEDS ORDERED: BACT400T PO (15:59)
[2017-01-13] MEDS ORDERED: AMLO5 PO (15:59)
[2017-01-13] MEDS ORDERED: CALC1CAP PO (15:59)
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
== END 2017-01-13 17:13 | disposition home or self-care (01) ==
LOC: PHEFT 15:06
DX: S16.1XXA Strain of muscle, fascia and tendon at neck level, initial encounter (principal); M54.2 Cervicalgia; V89.2XXA Person injured in unspecified motor-vehicle accident, traffic, initial encounter; Y92.410 Unspecified street and highway as the place of occurrence of the external cause; B19.20 Unspecified viral hepatitis C without hepatic coma; Z94.4 Liver transplant status; Z85.05 Personal history of malignant neoplasm of liver; F32.9 Major depressive disorder, single episode, unspecified; Z88.8 Allergy status to other drugs, medicaments and biological substances; Z79.899 Other long term (current) drug therapy
CPT/HCPCS: 72125; 99284; L0150

== ENCOUNTER 2017-05-05 13:04 | Emergency (ER) | payer MEDICARE, OTHER ==
[~2017-05-05] VITALS: Ht 185.4 cm; Wt 96.9 kg
[~2017-05-05 13:04] MED LIST changes: +AMLO5 PO; +BACT400T PO; +CALC1CAP PO; -CYCL5TAB PO; -HYDR-3133 PO; -NAPR500T2 PO; +OMEP10SU PO; -OMEP40CA2 PO; -PENT500C2 PO; -PROP10TA6 PO; +TACR0.5 PO; -XIFA550T4 PO; -[UNRECOGNIZED DRUG - REMARK]
[2017-05-05 13:13] VITALS: BP 121/79; PULSE 76; RESP 18; TEMP 97.7; O2SAT 98
[2017-05-05] MEDS ORDERED: ATARAX (13:26)
[2017-05-05 13:55] LABS: AUTOMATED NEUTROPHIL # 3.9 TH/MM3 (1.8-7.7); BASOPHIL % 0.5 % (0.0-2.0); EOSINOPHIL # 0.2 TH/MM3 (0-0.4); EOSINOPHIL % 3.7 % (0.0-4.0); HEMATOCRIT 40.3 % (39.0-51.0); HEMOGLOBIN 13.6 GM/DL (13.0-17.0); LYMPH % 16.8 % (9.0-44.0); MEAN CELL VOLUME 83.7 FL (80.0-100.0); MEAN CORPUSCULAR HEMOGLOBIN 28.3 PG (27.0-34.0); MEAN CORPUSCULAR HGB CONC 33.8 % (32.0-36.0); MONO % 10.4 % (0.0-8.0); MONOCYTE # 0.6 TH/MM3 (0-0.9); NEUT % 68.6 % (16.0-70.0); PLATELET COUNT 159 TH/MM3 (150-450); RED BLOOD COUNT 4.82 MIL/MM3 (4.50-5.90); RED CELL DISTRIBUTION WIDTH 12.7 % (11.6-17.2); WHITE BLOOD COUNT 5.7 TH/MM3 (4.0-11.0)
[2017-05-05 14:02] LABS: CHLORIDE 100 MEQ/L (98-107); SODIUM (NA) 133 MEQ/L (136-145)
[2017-05-05 14:05] LABS: CALCIUM 9.1 MG/DL (8.5-10.1)
[2017-05-05 14:06] LABS: ALBUMIN 3.8 GM/DL (3.4-5.0); BICARBONATE 24.4 MEQ/L (21.0-32.0); BLOOD UREA NITROGEN 37 MG/DL (7-18); GLUCOSE,RANDOM 130 MG/DL (74-106)
[2017-05-05 14:09] LABS: ALT (GPT) 18 U/L (12-78); AST (GOT) 13 U/L (15-37); GLOMERULAR FILTRATION RATE 32 ML/MIN (>89)
[2017-05-05 14:11] VITALS: BP 119/71; PULSE 73; RESP 20; O2SAT 97
[2017-05-05 14:11] LABS: TOTAL BILIRUBIN ADULT 1.6 MG/DL (0.2-1.0); TOTAL PROTEIN 7.6 GM/DL (6.4-8.2)
[2017-05-05 14:12] LABS: ALKALINE PHOSPHATASE 122 U/L (45-117)
[2017-05-05 14:14] LABS: TROPONIN I LESS THAN 0.02 NG/ML (0.02-0.05)
--- NOTE | 2017-05-05 14:22 | PD ---
HPI Chief Complaint: Respiratory Symptoms Time Seen by Provider: 13:32 Travel History International Travel<30 days: No Contact w/Intl Traveler<30days: No Traveled to known affect area: No History of Present Illness HPI This is a 66-year-old male presented here complaining of shortness of breath for the last week. Patient describes his symptoms as "if I ran out of oxygen", chest pressure/tightness. Patient denies any chest pain or cough. He denies any fever chills or night sweats or any recent weight loss. Patient used to smoke but he quit 29 years ago, he denies any previous lung disease or any recent issues. He states that he noticed for the last week that has gets short of breath easily and he can only walk 2 blocks without shortness of breath. He denies any leg swelling or pain and states that the symptoms happen even when he is just sitting on the chair reading the newspaper. PFSH Past Medical History Hx Anticoagulant Therapy: No Autoimmune Disease: No Blood Disorders: Yes (anemia) Anxiety: No Depression: Yes Cancer: Yes (Liver) Cardiovascular Problems: No Chemotherapy: Yes Cirrhosis: Yes (ESLD, LIVER TRANSPLANT) Diabetes: No Diminished Hearing: No Diverticulitis: Yes (1.5FT REMOVED , BOWEL RESECTION) Endocrine: No Gastrointestinal Disorders: Yes (CROHNS) GERD: Yes Genitourinary: Yes (overactive bladder.) Headaches: Yes Hepatitis: Yes (HEPATITIS C-STAGE IV LIVER DISEASE) Hiatal Hernia: No Hypertension: No Immune Disorder: No Implanted Vascular Access Dvce: Yes Kidney Stones: No Musculoskeletal: No Neurologic: Yes (neurapathy ) Psychiatric: No Reproductive: No Respiratory: No Immunizations Current: Yes Renal Failure: No Thyroid Disease: No Ulcer: Yes PNEUMOCCOCAL Vaccine (Year): 2 ?: Not Past Surgical History Abdominal Surgery: Yes (LIVER TRANSPLANT, COLON RESECTION, HERNIA, ILEOSTOMY) AICD: No Cardiac Surgery: No Ear Surgery: No Endocrine Surgery: No Eye Surgery: No Genitourinary Surgery: No Gynecologic Surgery: No Joint Replacement: No Neurologic Surgery: No Oral Surgery: No Thoracic Surgery: No Other Surgery: Yes (JOSÉ LUIS HERNIA REPAIR, liver embolization ) Social History Alcohol Use: No Tobacco Use: No Substance Use: No Allergies-Medications (Allergen,Severity, Reaction): Coded Allergies: prednisone (Unverified Adverse Reaction, Intermediate, "PARANOID", 05/05/17 ) per patient denies allergy *MDRO Multi-Drug Resistant Organism (Verified Adverse Reaction, Unknown, ) VRE (epigastric fluid) - 10/2007 VRE (blood) - 08/2007 Reported Meds & Prescriptions Reported Meds & Active Scripts Active Reported [Atarax] Unknown Dose Prilosec (Omeprazole Magnesium) 10 Mg Pow 1 Tab PO BID Norvasc (Amlodipine Besylate) 5 Mg Tab Unknown Dose PO DAILY Calcium Acetate (Phosphate Binder) 667 Mg Cap 2 Tab PO TID Prograf (Tacrolimus) 0.5 Mg Cap 2 PO BID Flomax (Tamsulosin HCl) 0.4 Mg Cap 0.4 Mg PO BID Review of Systems Except as stated in HPI: all other systems reviewed are Neg Physical Exam Narrative GENERAL: Alert oriented 3 no acute distress. SKIN: Focused skin assessment warm/dry. HEAD: Atraumatic. Normocephalic. EYES: Pupils equal and round. No scleral icterus. No injection or drainage. ENT: No nasal bleeding or discharge. Mucous membranes pink and moist. NECK: Trachea midline. No JVD. CARDIOVASCULAR: Regular rate and rhythm. No murmur appreciated. RESPIRATORY: No accessory muscle use. Clear to auscultation. Breath sounds equal bilaterally. GASTROINTESTINAL: Abdomen soft, non-tender, nondistended. Hepatic and splenic margins not palpable. MUSCULOSKELETAL: No obvious deformities. No clubbing. No cyanosis. No edema. NEUROLOGICAL: Awake and alert. No obvious cranial nerve deficits. Motor grossly within normal limits. Normal speech. PSYCHIATRIC: Appropriate mood and affect; insight and judgment normal. Data Data Last Documented VS Vital Signs Date Time Temp Pulse Resp B/P (MAP) Pulse Ox O2 Delivery O2 Flow Rate FiO2 05/05/17 14:11 73 20 119/71 (87) 97 05/05/17 13:13 97.7 Orders Orders Electrocardiogram (05/05/17 ) D-Dimer (05/05/17 13:37) Comprehensive Metabolic Panel (05/05/17 13:37) Complete Blood Count With Diff (05/05/17 13:37) B-Type Natriuretic Peptide (05/05/17 13:37) Troponin I (05/05/17 13:37) Chest, Pa & Lat (05/05/17 ) Ed Discharge Order (05/05/17 14:46) Labs Laboratory Tests Test 05/05/17 13:45 White Blood Count 5.7 TH/MM3 Red Blood Count 4.82 MIL/MM3 Hemoglobin 13.6 GM/DL Hematocrit 40.3 % Mean Corpuscular Volume 83.7 FL Mean Corpuscular Hemoglobin 28.3 PG Mean Corpuscular Hemoglobin Concent 33.8 % Red Cell Distribution Width 12.7 % Platelet Count 159 TH/MM3 Mean Platelet Volume 7.0 FL Neutrophils (%) (Auto) 68.6 % Lymphocytes (%) (Auto) 16.8 % Monocytes (%) (Auto) 10.4 % Eosinophils (%) (Auto) 3.7 % Basophils (%) (Auto) 0.5 % Neutrophils # (Auto) 3.9 TH/MM3 Lymphocytes # (Auto) 1.0 TH/MM3 Monocytes # (Auto) 0.6 TH/MM3 Eosinophils # (Auto) 0.2 TH/MM3 Basophils # (Auto) 0.0 TH/MM3 CBC Comment DIFF FINAL Differential Comment D-Dimer Quantitative (PE/DVT) 0.38 MG/L FEU Blood Urea Nitrogen 37 MG/DL Creatinine 2.10 MG/DL Random Glucose 130 MG/DL Total Protein 7.6 GM/DL Albumin 3.8 GM/DL Calcium Level 9.1 MG/DL Alkaline Phosphatase 122 U/L Aspartate Amino Transf (AST/SGOT) 13 U/L Alanine Aminotransferase (ALT/SGPT) 18 U/L Total Bilirubin 1.6 MG/DL Sodium Level 133 MEQ/L Potassium Level 4.5 MEQ/L Chloride Level 100 MEQ/L Carbon Dioxide Level 24.4 MEQ/L Anion Gap 9 MEQ/L Estimat Glomerular Filtration Rate 32 ML/MIN Troponin I LESS THAN 0.02 NG/ML B-Type Natriuretic Peptide 16 PG/ML [facility] Medical Decision Making Medical Screen Exam Complete: Yes Emergency Medical Condition: Yes Differential Diagnosis Acute coronary syndrome, pneumothorax, pneumonia, congestive heart failure. Narrative Course This is a 66-year-old male presented here complaining of shortness of breath for the last week and got worse recently. Patient has no leg swelling, blood work is unremarkable, BNP is not elevated, BUN/creatinine are elevated although I do not have the baseline for him. I asked the patient if he has history of kidney disease and he states that he used to be on dialysis after his liver transplant but that was temporary. I explained the patient that he would need to be admitted for a repeat BUN and creatinine and for possible apical to make sure there is no cardiac origin. Patient preferred to go home and follow-up with his primary care physician since he does not have any chest pain and thinks that the shortness of breath is mild. I encouraged the patient to return to the ER immediately of any chest pain or shortness of breath has not improving or if it is getting worse. Patient understands and will follow up with his primary care for the shortness of breath and for the elevated BUN and creatinine. Diagnosis Primary Impression: SOB (shortness of breath) Additional Instructions: Please follow-up with primary care physician for elevated kidney functions and shortness of breath and follow-up with cardiology. Return to the ER if symptoms change or do not improve. Disposition: 01 DISCHARGE HOME Condition: Stable Percy Dotson MD May 05, 2017 14:22
--- NOTE | 2017-05-05 14:22 | RADRPT ---
EXAM DATE/TIME: 05/05/2017 14:09 [place] COMPARISON: No previous studies available for comparison. INDICATIONS : Shortness of breath for 2 weeks and chest tightness. MEDICAL HISTORY : Liver cancer prior to transplant. Hep C. SURGICAL HISTORY : Liver transplant. ENCOUNTER: Initial ACUITY: 2 weeks PAIN SCORE: 0/10 LOCATION: Bilateral chest FINDINGS: PA and lateral views of the chest demonstrate the lungs to be symmetrically aerated without evidence of mass, infiltrate or effusion. There is hyperaeration bilaterally. The cardiomediastinal contours are unremarkable. Osseous structures are intact. CONCLUSION: No acute disease. Baljeet Arreguin MD on May 05, 2017 at 14:19 Board Certified Radiologist. This report was verified electronically.
--- NOTE | 2017-05-06 20:54 | EKG ---
Date Performed: 05/05/2017 Time Performed: 13:25:22 PTAGE: 66 years EKG: Sinus rhythm WITH FIRST DEGREE AV BLOCK ABNORMAL ECG NO PREVIOUS TRACING DOCTOR: Epifanio Fernandes Interpretating Date/Time 05/06/2017 20:53:12
== END 2017-05-05 15:10 | disposition home or self-care (01) ==
LOC: PHED 13:04
DX: R06.02 Shortness of breath (principal); R94.31 Abnormal electrocardiogram [ECG] [EKG]; K21.9 Gastro-esophageal reflux disease without esophagitis; Z94.4 Liver transplant status; Z86.2 Personal history of diseases of the blood and blood-forming organs and certain disorders involving the immune mechanism; Z86.59 Personal history of other mental and behavioral disorders; Z87.19 Personal history of other diseases of the digestive system; Z87.448 Personal history of other diseases of urinary system; Z86.69 Personal history of other diseases of the nervous system and sense organs
CPT/HCPCS: 71046; 80053; 83880; 84484; 85025; 85379; 93005; 99285